=== PATIENT | male | born 1945 | race Caucasian/White ===

== ENCOUNTER 2022-02-24 22:10 | Inpatient (IN) | payer MEDICARE ==
[2022-02-24] MEDS ORDERED: Milk Of Magnesia 30 ML UDCUP PO PRN (23:07)
[2022-02-24] MEDS ORDERED: Calcium Carbonate 500 MG ChewTAB PO PRN (23:07)
[2022-02-24] MEDS ORDERED: Aspirin 81 mg Enteric Coated Tablet PO SCH (23:30)
[2022-02-24 23:40] VITALS: BMI 19.5
[2022-02-25 00:01] LABS: Magnesium 1.8 mg/dL (1.6-2.6)
[2022-02-25 00:23] LABS: Thyroid Stimulating Hormone 1.6233 uIU/mL (0.35-4.94)
[2022-02-25] MEDS: D5 1/2 NS w/20 mEq KCL 1,000 ML IV SCH ×3 (00:34→21:34)
[2022-02-25] MEDS: Acetaminophen 325 MG TAB PO PRN ×2 (02:24→08:27)
[2022-02-25 04:06] LABS: #Basophils 0.1 10x3/uL (0.0-0.2); #Eosinphils 0.4 10x3/uL (0.0-0.5); #Monocytes 1.1 10x3/uL (0.0-1.1); #Neutrophils 6.7 10x3/uL (1.5-8.4); %Basophils 0.6 % (0.0-2.0); %Eosinophils 3.9 % (0.0-6.0); %Lymphocytes 17.6 % (18.0-47.0); %Monocytes 10.5 % (0.0-10.0); %Neutrophils 66.9 % (40.0-75.0); Hemoglobin 12.5 g/dL (13.5-17.5); Mean Corpuscular HGB CONC 34.9 g/dL (32.0-36.0); Mean Corpuscular Hemoglobin 32.1 pg (27.0-33.0); Mean Corpuscular Volume 91.8 fl (81.2-95.1); Mean Platelet Volume 11.4 fl (7.4-10.4); Platelet Count 155 10x3/uL (150-450); RBC Distribution Width 13.4 % (11.5-14.5)
[2022-02-25 04:19] LABS: ALT (SGPT) 74 U/L (8-55); AST (SGOT) 75 U/L (5-34); Albumin 3.4 g/dL (3.4-4.8); Alkaline Phosphatase 65 U/L (40-110); Anion Gap 12 mmol/L (10-20); BUN (Urea Nitrogen) 30 mg/dL (8.4-25.7); Bilirubin, Total 0.6 mg/dL (0.2-1.2); Calc. Creatinine Clearance 52 mL/min (70-130); Calcium 9.3 mg/dL (7.8-10.44); Carbon Dioxide 25 mmol/L (23-31); Chloride 104 mmol/L (98-107); Estimated GFR 75; Globulin 2.8 g/dL (2.4-3.5); Glucose 119 mg/dL (83-110); Potassium 3.3 mmol/L (3.5-5.1); Protein, Total 6.2 g/dL (5.8-8.1); Sodium 138 mmol/L (136-145)
[2022-02-25 04:27] LABS: Troponin I 0.069 ng/mL (< 0.028)
[2022-02-25] MEDS ORDERED: Amlodipine 5 MG TAB PO SCH (05:00)
[2022-02-25] MEDS ORDERED: Potassium Chloride 20 MEQ TAB PO SCH (05:15)
[2022-02-25] MEDS ORDERED: Phenazopyridine HCl 95 MG TAB PO SCH (06:00)
[2022-02-25] MEDS: Aspirin 81 mg Enteric Coated Tablet PO SCH (08:26)
[2022-02-25] MEDS: Sertraline 100 MG TAB PO SCH (08:26)
[2022-02-25] MEDS: Amlodipine 5 MG TAB PO SCH (08:27)
[2022-02-25] MEDS: Lisinopril 20 MG TAB PO SCH (08:28)
[2022-02-25] MEDS ORDERED: FLU VACC QS2022-23(65YR UP)/PF 240 MCG/0.7 ML SYRINGE IM ONE (09:00)
[2022-02-25] MEDS ORDERED: D5 1/2 NS w/20 mEq KCL 1,000 ML ONE ×2 (12:01)
[2022-02-25] MEDS ORDERED: Metoprolol Tartrate 25 MG TAB PO SCH ×2 (13:30→19:00)
[2022-02-25 13:54] LABS: PSA-Symptomatic (DIAGNOSTIC) 6.91 ng/mL (0-4.0)
[2022-02-25] MEDS: cefTRIAXone\\ROCEPHIN 1 GM in Sodium Chloride 0.9% 100 ML IVPB SCH (18:02)
[2022-02-25] MEDS ORDERED: hydrALAZINE 20 MG/ML VIAL SLOW IVP SCH (20:15)
[2022-02-25] MEDS: Tamsulosin HCl 0.4 MG CAP PO SCH (21:34)
[2022-02-25] MEDS: Metoprolol Tartrate 25 MG TAB PO SCH (21:34)
[2022-02-26] MEDS ORDERED: D5 1/2 NS w/20 mEq KCL 1,000 ML ONE (00:58)
[2022-02-26 03:41] LABS: #Basophils 0.1 10x3/uL (0.0-0.2); #Eosinphils 0.2 10x3/uL (0.0-0.5); #Monocytes 0.8 10x3/uL (0.0-1.1); #Neutrophils 5.4 10x3/uL (1.5-8.4); %Basophils 0.6 % (0.0-2.0); %Eosinophils 2.9 % (0.0-6.0); %Lymphocytes 17.9 % (18.0-47.0); %Monocytes 10.1 % (0.0-10.0); %Neutrophils 68.1 % (40.0-75.0); Hemoglobin 12.4 g/dL (13.5-17.5); Mean Corpuscular HGB CONC 34.1 g/dL (32.0-36.0); Mean Corpuscular Hemoglobin 31.7 pg (27.0-33.0); Mean Corpuscular Volume 93.1 fl (81.2-95.1); Mean Platelet Volume 11.3 fl (7.4-10.4); Platelet Count 153 10x3/uL (150-450); RBC Distribution Width 13.4 % (11.5-14.5); Red Blood Cell (RBC) Count 3.91 10x6/uL (4.32-5.72); White Blood Cell (WBC) Count 7.9 10x3/uL (3.5-10.5)
[2022-02-26 03:58] LABS: Anion Gap 10 mmol/L (10-20); BUN (Urea Nitrogen) 16 mg/dL (8.4-25.7); Calc. Creatinine Clearance 64 mL/min (70-130); Calcium 9.4 mg/dL (7.8-10.44); Carbon Dioxide 27 mmol/L (23-31); Chloride 105 mmol/L (98-107); Estimated GFR 89; Glucose 115 mg/dL (83-110); Potassium 3.8 mmol/L (3.5-5.1); Sodium 138 mmol/L (136-145)
[2022-02-26 04:06] LABS: Troponin I 0.062 ng/mL (< 0.028)
[2022-02-26] MEDS: D5 1/2 NS w/20 mEq KCL 1,000 ML IV SCH ×2 (05:30→12:07)
[2022-02-26] MEDS: Sertraline 100 MG TAB PO SCH (08:17)
[2022-02-26] MEDS: Acetaminophen 325 MG TAB PO PRN (08:18)
[2022-02-26] MEDS: Aspirin 81 mg Enteric Coated Tablet PO SCH (08:18)
[2022-02-26] MEDS: Lisinopril 20 MG TAB PO SCH (08:19)
[2022-02-26] MEDS: Amlodipine 5 MG TAB PO SCH (08:19)
[2022-02-26] MEDS ORDERED: hydrALAZINE 25 MG TAB PO SCH (10:30)
[2022-02-26] MEDS: Metoprolol Tartrate 25 MG TAB PO SCH (10:49)
[2022-02-26] MEDS: cefTRIAXone\\ROCEPHIN 1 GM in Sodium Chloride 0.9% 100 ML IVPB SCH (17:58)
[2022-02-26] MEDS ORDERED: hydrALAZINE 20 MG/ML VIAL SLOW IVP PRN (18:40)
[2022-02-26] MEDS: hydrALAZINE 25 MG TAB PO SCH (21:05)
[2022-02-26] MEDS: Tamsulosin HCl 0.4 MG CAP PO SCH (21:05)
[2022-02-27] MEDS: D5 1/2 NS w/20 mEq KCL 1,000 ML IV SCH (01:39)
[2022-02-27 04:42] LABS: ALT (SGPT) 61 U/L (8-55); AST (SGOT) 51 U/L (5-34); Albumin 3.4 g/dL (3.4-4.8); Alkaline Phosphatase 64 U/L (40-110); Anion Gap 11 mmol/L (10-20); BUN (Urea Nitrogen) 12 mg/dL (8.4-25.7); Bilirubin, Total 0.7 mg/dL (0.2-1.2); Calc. Creatinine Clearance 52 mL/min (70-130); Calcium 9.8 mg/dL (7.8-10.44); Carbon Dioxide 27 mmol/L (23-31); Chloride 105 mmol/L (98-107); Estimated GFR 74; Globulin 3.3 g/dL (2.4-3.5); Glucose 106 mg/dL (83-110); Potassium 3.9 mmol/L (3.5-5.1); Protein, Total 6.7 g/dL (5.8-8.1); Sodium 139 mmol/L (136-145)
[2022-02-27] MEDS: Amlodipine 10 MG TAB PO SCH (08:33)
[2022-02-27] MEDS: Aspirin 81 mg Enteric Coated Tablet PO SCH (08:34)
[2022-02-27] MEDS: Sertraline 100 MG TAB PO SCH (08:34)
[2022-02-27] MEDS: hydrALAZINE 25 MG TAB PO SCH ×3 (08:34→21:00)
[2022-02-27] MEDS: Lisinopril 20 MG TAB PO SCH (08:34)
[2022-02-27] MEDS: Amlodipine 5 MG TAB PO SCH (08:35)
[2022-02-27] MEDS: cefTRIAXone\\ROCEPHIN 1 GM in Sodium Chloride 0.9% 100 ML IVPB SCH (18:05)
[2022-02-27] MEDS: Tamsulosin HCl 0.4 MG CAP PO SCH (21:02)
[2022-02-28] MEDS: Acetaminophen 325 MG TAB PO PRN ×2 (00:07→23:09)
[2022-02-28] MEDS ORDERED: clonazePAM 1 MG TAB PO SCH (00:30)
[2022-02-28] MEDS: Sertraline 100 MG TAB PO SCH (08:12)
[2022-02-28] MEDS: Aspirin 81 mg Enteric Coated Tablet PO SCH (08:12)
[2022-02-28] MEDS: Amlodipine 10 MG TAB PO SCH (08:13)
[2022-02-28] MEDS: Lisinopril 20 MG TAB PO SCH (08:13)
[2022-02-28] MEDS: hydrALAZINE 25 MG TAB PO SCH ×3 (08:13→20:40)
[2022-02-28] MEDS: Tamsulosin HCl 0.4 MG CAP PO SCH (20:40)
[2022-03-01] MEDS ORDERED: clonazePAM 1 MG TAB PO SCH (01:15)
[2022-03-01] MEDS: Sertraline 100 MG TAB PO SCH (08:15)
[2022-03-01] MEDS: Amlodipine 10 MG TAB PO SCH (08:15)
[2022-03-01] MEDS: Lisinopril 20 MG TAB PO SCH (08:15)
[2022-03-01] MEDS: hydrALAZINE 25 MG TAB PO SCH (08:16)
[2022-03-01] MEDS: Aspirin 81 mg Enteric Coated Tablet PO SCH (08:16)
[2022-03-01 09:40] VITALS: BP 138/68; TEMP 97.7
== END 2022-03-01 11:58 | DRG 683 ==
LOC: CSHTELE 22:10
PROVIDERS: ADMIT Family Medicine; ATTEND Family Medicine
DX: N17.9 Acute kidney failure, unspecified (principal); I69.354 Hemiplegia and hemiparesis following cerebral infarction affecting left non-dominant side; Z68.1 Body mass index [BMI] 19.9 or less, adult; R63.6 Underweight; Z60.2 Problems related to living alone; E78.5 Hyperlipidemia, unspecified; F32.A Depression, unspecified; N40.1 Benign prostatic hyperplasia with lower urinary tract symptoms; N39.498 Other specified urinary incontinence; R35.0 Frequency of micturition; R26.89 Other abnormalities of gait and mobility; K21.9 Gastro-esophageal reflux disease without esophagitis; N18.9 Chronic kidney disease, unspecified; R79.89 Other specified abnormal findings of blood chemistry; E86.0 Dehydration; R33.8 Other retention of urine; I12.9 Hypertensive chronic kidney disease with stage 1 through stage 4 chronic kidney disease, or unspecified chronic kidney disease; N41.9 Inflammatory disease of prostate, unspecified; R63.0 Anorexia; E86.9 Volume depletion, unspecified; Z79.899 Other long term (current) drug therapy; Z88.8 Allergy status to other drugs, medicaments and biological substances; Z90.49 Acquired absence of other specified parts of digestive tract; Z80.3 Family history of malignant neoplasm of breast
CPT/HCPCS: 36415; 70551; 76705; 80048; 80053; 82977; 83735; 84153; 84443; 84484; 85025; 87086; 93005; 93010; 93306; 93880; J0360; J0696; J1650; J3480; J3490